=== PATIENT | female | born 1960 | race Caucasian/White ===

== ENCOUNTER 2019-05-17 08:20 | Outpatient (CLI) | payer OTHER, SELFPAY ==
--- NOTE | ~2019-05-17 | US_ITS ---
EXAMINATION: US soft tissue LE RT DATE: 05/17/2019 08:55 INDICATION: Right foot lump. TECHNIQUE: Multiple grayscale and Doppler ultrasound images of the right foot were obtained. COMPARISON: None FINDINGS: There is a 2.3 x 2.6 x 1.2 cm mixed solid and cystic mass at the dorsum of the right midfoo t. The solid component is isoechoic to subcutaneous fat. IMPRESSION: 1. Mixed solid and cystic mass at the dorsum of the right midfoot, most likely inflammation and gangl ion cysts. Reviewed, dictated and finalized at location A. TUB TENDER IMPRESSION: 1. Mixed solid and cystic mass at the dorsum of the right midfoot, most likely inflammation and ganglion cysts.
--- NOTE | 2019-05-17 10:15 | NEURO_ITS ---
Patient Number: [id number] Impression: # Known diabetic complains of numbness of hands. # Bilateral Carpal Tunnel Syndrome. # Bilateral ulnar neuropathy across the elbows. # Normal needle/EMG exam. Nerve Conduction Studies Anti Sensory Summary Table Stim Site NR Peak (ms) P-T Amp (?V) Site1 Site2 Delta-P (ms) Dist (cm) Ata (m/s) Left Median Anti Sensory (2-3nd Digit) Wrist 4.1 21.4 Wrist 2-3nd Digit 4.1 14.0 34 Wrist 3.8 41.8 Wrist 2-3nd Digit 4.1 14.0 34 Right Median Anti Sensory (2-3nd Digit) Wrist 4.2 58.3 Wrist 2-3nd Digit 4.2 14.0 33 Wrist 6.4 58.2 Wrist 2-3nd Digit 4.2 14.0 33 Left Radial Anti Sensory (Base 1st Digit) Wrist 2.1 16.0 Wrist Base 1st Digit 2.1 0.0 Right Radial Anti Sensory (Base 1st Digit) Wrist 2.4 12.5 Wrist Base 1st Digit 2.4 0.0 Left Ulnar Anti Sensory (5th Digit) Wrist 3.1 37.2 Wrist 5th Digit 3.1 14.0 45 Right Ulnar Anti Sensory (5th Digit) Wrist 3.3 9.4 Wrist 5th Digit 3.3 14.0 42 Motor Summary Table Stim Site NR Onset (ms) O-P Amp (mV) Site1 Site2 Delta-0 (ms) Dist (cm) Ata (m/s) Left Median Motor (Abd Poll Brev) Wrist 4.5 1.7 Elbow Wrist 5.7 27.0 47 Elbow 10.2 1.3 Right Median Motor (Abd Poll Brev) Wrist 4.5 1.3 Elbow Wrist 5.0 27.0 54 Elbow 9.5 2.0 Left Ulnar Motor (Abd Dig Minimi) Wrist 3.2 2.9 A Elbow Wrist 7.7 31.0 40 A Elbow 10.9 2.1 B Elbow Wrist 5.6 25.0 45 B Elbow 8.8 2.0 Right Ulnar Motor (Abd Dig Minimi) Wrist 2.8 3.4 A Elbow Wrist 7.4 30.0 41 A Elbow 10.2 0.7 B Elbow Wrist 5.1 23.0 45 B Elbow 7.9 0.7 F Wave Studies NR F-Lat (ms) L-R F-Lat (ms) Left Median (Mrkrs) (Abd Poll Brev) 30.55 0.67 Right Median (Mrkrs) (Abd Poll Brev) 31.21 0.67 Left Ulnar (Mrkrs) (Abd Dig Min) 25.29 4.79 Right Ulnar (Mrkrs) (Abd Dig Min) 30.08 4.79 EMG Side Muscle Nerve Root Ins Act Fibs Amp Dur Recrt Comment Right 1stDorInt Ulnar C8-T1 Nml Nml Nml Nml Nml Right Ext Indicis Radial (Post Int) C7-8 Nml Nml Nml Nml Nml Right Ext Digitorum Radial (Post Int) C7-8 Nml Nml Nml Nml Nml Right BrachioRad Radial C5-6 Nml Nml Nml Nml Nml Right PronatorTeres Median C6-7 Nml Nml Nml Nml Nml Right Abd Poll Brev Median C8-T1 Nml Nml Nml Nml Nml Left 1stDorInt Ulnar C8-T1 Nml Nml Nml Nml Nml Left Ext Indicis Radial (Post Int) C7-8 Nml Nml Nml Nml Nml Left Ext Digitorum Radial (Post Int) C7-8 Nml Nml Nml Nml Nml Left BrachioRad Radial C5-6 Nml Nml Nml Nml Nml Left PronatorTeres Median C6-7 Nml Nml Nml Nml Nml Left Abd Poll Brev Median C8-T1 Nml Nml Nml Nml Nml Right ABD Dig Min Ulnar C8-T1 Nml Nml Nml Nml Nml Left ABD Dig Min Ulnar C8-T1 Nml Nml Nml Nml Nml MTDD
== END 2019-05-17 08:21 | disposition home or self-care (01) ==
LOC: ANHIMG 08:23
PROVIDERS: PCP Internal Medicine; Visit Provider Nurse Practitioner
DX: R22.41 Localized swelling, mass and lump, right lower limb (principal); R20.2 Paresthesia of skin; R20.0 Anesthesia of skin; G56.03 Carpal tunnel syndrome, bilateral upper limbs; G56.23 Lesion of ulnar nerve, bilateral upper limbs
CPT/HCPCS: 76882; 95886; 95911

== ENCOUNTER 2019-06-11 08:34 | Outpatient (CLI) | payer OTHER, SELFPAY ==
--- NOTE | ~2019-06-11 | MR_ITS ---
EXAMINATION: MR ankle RT wo/w con DATE: 06/11/2019 10:04 INDICATION: Right ankle tumor and pain with pressure. TECHNIQUE: Magnetic resonance imaging (MRI) of the right ankle MR mid and hindfoot was performed with out and with deep mL Multihance intravenous contrast. Sequences included axial, sagittal and coronal T1-weighted FSE and T2-weighted FS FSE, axial T1-weighted FS FSE and postcontrast axial and sagittal T1-weighted FS FSE . COMPARISON: None. FINDINGS: Medial ankle ligaments: Deep and superficial deltoid ligaments as well as the spring ligament are normal. Lateral ankle ligaments: The anterior and posterior inferior tibiofibular ligaments are normal. The anterior talofibular, calc aneofibular and posterior talofibular ligaments are normal. Tendons: Small enthesophytes and mild enthesopathy at the calcaneal insertion of the distal Achilles tendon. T he peroneus longus and brevis tendons are normal. The tibialis anterior and extensor hallucis longus and extensor digitorum longus tendons are normal. The tibialis posterior, flexor digitorum longus and flexor hallucis longus tendons are normal. Plantar fascia: Additional moderate sized plantar calcaneal spur with mild thickening and mild increased signal of th e proximal plantar aponeurosis consistent with mild enthesopathy. No surrounding soft tissue edema to suggest acute plantar fasciitis. Bones/other: Bone alignment is normal. Normal marrow signal with no reactive edema, fracture, erosions or patholog ic marrow replacing process. Mild polyarticular osteoarthritis at the subtalar and tarsal metatarsal joints. There is thin synovial enhancement at the periphery and along the thin septations of a multil obulated likely ganglion cyst which appears to arise from the dorsal aspect of the navicular cuneifor m articulation. The lesion measures 1.6 cm possible to distal, 1.6 cm medial collateral and 10 mm in thickness. No definitive nodular enhancing soft tissue component to elevate concern for neoplasm. Fluid: Physiologic amount fluid in the joint spaces. IMPRESSION: 1. 1.6 x 1.6 x 1.0 cm multilobulated cystic lesion at the dorsal aspect of the naviculocuneiform randolph culation with curvilinear enhancement along the periphery and thin internal septations. No definitive solid or nodular enhancing soft tissue component to suggest malignancy. Location and appearance woul d be typical for a ganglion cyst which would also be statistically the most likely lesion. Differenti al would include hematoma or abscess in the appropriate clinical setting or significantly less likely neoplasm either benign such as a lymphangioma or malignant. Reviewed, dictated and finalized at location A. SS SPEC IMPRESSION: 1. 1.6 x 1.6 x 1.0 cm multilobulated cystic lesion at the dorsal aspect of the naviculocuneiform articulation with curvilinear enhancement along the periphery and thin internal septations. No definitive solid or nodular enhancing soft ti ssue component to suggest malignancy. Location and appearance would be typical for a ganglion cyst which would also be statistically the most likely lesion. D ifferential would include hematoma or abscess in the appropriate clinical setti ng or significantly less likely neoplasm either benign such as a lymphangioma o r malignant.
[2019-06-11 09:14] LABS: Blood Urea Nitrogen 14 mg/dL (8-26); Estimated Glomerular Filt Rate > 60
== END 2019-06-11 08:35 | disposition home or self-care (01) ==
LOC: ANHIMG 08:37
PROVIDERS: PCP Internal Medicine; Visit Provider Podiatrist Foot & Ankle Surgery
DX: M25.871 Other specified joint disorders, right ankle and foot (principal)
CPT/HCPCS: 73723; A9577

== ENCOUNTER 2019-06-22 15:29 | Outpatient (CLI) | payer OTHER, SELFPAY ==
--- NOTE | 2019-06-22 15:32 | ECG_ITS ---
Measurements Intervals [place] Rate: 82 P: 43 MN: 181 QRS: 47 QRSD: 86 T: 43 QT: 365 QTc: 428 Interpretive Statements SINUS RHYTHM NORMAL ECG Electronically Signed On 06-22-2019 15:50:05 [employer]ADE SALES ASSISTANT by Elpidio Smith D.O.
== END 2019-06-22 15:30 | disposition home or self-care (01) ==
LOC: ANHSURGERY 15:32
PROVIDERS: PCP Internal Medicine; Visit Provider Podiatrist Foot & Ankle Surgery
DX: E11.9 Type 2 diabetes mellitus without complications (principal)
CPT/HCPCS: 93005

== ENCOUNTER 2019-06-30 01:18 | Day surgery (SDC) | payer OTHER, SELFPAY ==
[2019-06-20 15:04] VITALS: BMI 45.6
[2019-06-30] VITALS (8 sets, daily range): BP systolic 92–138; BP diastolic 53–79; PULSE 74–98; RESP 12–20; TEMP 37–37.1; O2SAT 91–98
[2019-06-30] MEDS: LACTATED RINGERS 1,000 ML 30 ML IV CONT (06:40)
[2019-06-30 06:45] LABS: Glucose Point of Care 132 (65-105)
--- NOTE | 2019-06-30 06:54 | WPDANESEPPF ---
Anes - Initial Pre Proc Eval Procedure: Operation Date: 06/30/19 07:30 Proposed Procedures p Excision of Soft Tissue Mass Right Foot - Melchor Garcia JR, MD Date/Time: 06/30/19 06:54 Surgeon: Melchor Garcia JR, MD Pre Op Diagnosis: Soft Tissue Mass Right Foot Patient Data Age: 58 Gender: F Height: 1.65 m Weight: 124.28 kg Allergies Allergy/AdvReac Type Severity Reaction Status Date / Time tramadol AdvReac Anxiety Verified 06/27/19 07:39 Home Medications Medication Instructions Recorded Confirmed Type aspirin 81 mg tablet,delayed 81 mg PO DAILY 03/28/19 06/20/19 History release cholecalciferol (vitamin D3) 125 5,000 unit PO DAILY 03/28/19 06/20/19 History mcg (5,000 unit) tablet citalopram 20 mg tablet 20 mg PO DAILY #30 tablet 03/28/19 06/20/19 Rx metformin 1,000 mg tablet 1,000 mg PO BID #60 tablet 03/28/19 06/20/19 Rx pravastatin 10 mg PO HS 06/20/19 06/20/19 History Laboratory Tests 06/30/19 06:43 POC Capillary Glucose 132 mg/dl H mg/dl (65-105) Patient hx anesthesia problems: none Family hx anesthesia problems: none PMFSH Past Medical History Medical History (Updated 06/30/19 @ 06:54 by Jluis Spears DO) Allergies Anxiety Chicken pox Depression GI disease Hyperlipidemia Migraine SATINDER (obstructive sleep apnea) Osteoarthritis Pneumonia Post-menopausal Tobacco abuse Type 2 diabetes mellitus Vitamin D deficiency Social History Social History Smoking packs per day: 0.25 Smoking cigarettes per day: 5.0 Smoking status: Current every day smoker Tobacco type: cigarettes Alcohol intake: never Anes - Eval Final PreProcedure Day of Procedure 06/30/19 06:54 Patient weight: morbidly obese Heart: regular rate and rhythm Lungs: clear to auscultation and normal air movement Airway: Mallampati scale class III Neurological: alert and oriented Last oral intake: >/= 8 hours ASA classification: III Emergent: no Anesthetic plan: proceed Anesthesia type and monitoring: general LMA and standard monitoring Informed Consent: The patient's anesthetic plan and its attendant risks and benefits were discussed with the patient/family/POA. Questions were solicited and answers provided to the satisfaction of the patient/family/POA.
--- NOTE | 2019-06-30 07:15 | SUR.PREOP ---
NO HAIR PRESENT TO RIGHT LOWER EXTREMITY TO REMOVE
--- NOTE | 2019-06-30 07:22 | WPDHPUPDATE1 ---
History and Physical Update Update Date/Time: 06/30/19 07:22 History and Physical has been reviewed, including an updated exam of the patient. There are NO changes in the patient's condition. Risks, benefits, and alternatives have been discussed and questions answered. Patient agrees to proceed with procedure.
[2019-06-30] MEDS: ceFAZolin 3 GM/D5W 100 ML 100 ML IVPB (07:34)
[2019-06-30] MEDS: IBUPROFEN IV 800 MG/200 ML 800 MG/200 ML BAG 400 MG IVPB (07:34)
--- NOTE | 2019-06-30 07:45 | SUR.PREOP ---
PT HAS NO HAIR PRESENT TO LEFT LOWER LEG FOR REMOVAL.
[2019-06-30] MEDS: LIDOCAINE HCL 2% LOCAL INJ 20 ML VIAL 40 ML INFILTRATE (08:01)
--- NOTE | 2019-06-30 08:58 | PM.OP ---
Procedure Note - Brief Procedure Note - Brief Date of procedure: 06/30/19 Pre-op diagnosis: Soft Tissue Mass Right Foot Post-op diagnosis: same Procedure performed: Excision of soft tissue mass right foot Anesthesia: GLMA Surgeon: Melchor Garcia JR, DPM Estimated blood loss (mL): 1 Complications: No immediate complications Condition: stable Disposition: same day
[2019-06-30 09:15] LABS: Glucose Point of Care 141 (65-105)
--- NOTE | 2019-06-30 09:38 | SUR.PHASEI ---
Discussed o2 sat 89-[address] Spears. OK'd to move to op recovery.
--- NOTE | 2019-06-30 17:34 | OP_ITS ---
DATE OF PROCEDURE: 06/30/2019 PREOPERATIVE DIAGNOSES: 1. Painful soft tissue mass, right foot. 2. Neuritis, right foot. POSTOPERATIVE DIAGNOSES: 1. Painful soft tissue mass, right foot. 2. Neuritis, right foot. PROCEDURE: Excision of soft tissue mass, right foot. PATHOLOGY: Soft tissue mass from right foot sent for gross and histopathology. ANESTHESIA: General with local. HEMOSTASIS: Pneumatic ankle tourniquet at 250 mmHg. ESTIMATED BLOOD LOSS: Minimal. MATERIALS USED: 4-0 Vicryl and 4-0 Monocryl. COMPLICATIONS: None. PROCEDURE IN DETAIL: Under mild sedation, the patient was brought into the operating room, placed on the operating table in the supine position. A pneumatic ankle tourniquet was placed about the patient's right ankle. Following IV sedation, local anesthesia was obtained about the right foot utilizing 20 cc of a 1:1 mixture of 2% lidocaine plain and 0.5% Marcaine plain. The foot was then scrubbed, prepped, and draped in the usual aseptic manner. An Esmarch bandage was then used to exsanguinate the patient's right foot and the pneumatic ankle tourniquet was then inflated. Surgery began in the following manner. Attention was directed to the dorsal lateral aspect of the right proximal foot where an incision was made just dorsal to the prominent tumor. The tumor was then carefully dissected. The dissection was continued deep down through the subcutaneous tissues using sharp and blunt dissection. All bleeders were ligated and cauterized as necessary. At this point, the neurovascular bundle overlying the tumor was retracted both medially and laterally. Care was taken to make sure that there was not excessive tension on the neurovascular bundles. At this point, a thick-walled cystic mass was noted extruding from the dorsal aspect of the navicular cuneiform. This was freed distally and then carefully dissected proximally, medially and laterally. Excised the entire mass in toto. It was sent for gross and histopathology. The wound site was then flushed with copious amounts of sterile saline. The extensor digitorum brevis muscle was also retracted laterally during the dissection and there were no other noted soft tissue masses present. Next, the subcutaneous structures were reapproximated and coapted utilizing 4-0 Vicryl. Next, the skin was reapproximated and coapted utilizing 4-0 Monocryl in running subcuticular suture fashion technique. Upon completion of the procedure, the incision was dressed with Steri-Strips, Adaptic, 4x4s, Kerlix, and Coban. The pneumatic ankle tourniquet was then deflated and a prompt hyperemic response was noted to all digits of the right foot. Postop shoe was then applied. The patient did very well with the procedure and anesthesia. She was transferred to the recovery room with vital signs stable and vascular status intact to all toes of the right foot. Following a period of postoperative monitoring, the patient will be discharged home on the following written and oral postoperative instructions: 1. Keep the dressing clean, dry, and intact. 2. Avoid excessive ambulation. 3. Ice and elevate the right foot when at rest. 4. Wear surgical shoe at all times with ambulating. 5. Contact Dr. Garcia for all postop care and if any problems arise. Prescriptions were written for Percocet 5/325, dispensed 30 to be taken 1 p.o. q.4-6 hours as needed for severe pain. Juancho I MT: Romario
== END 2019-06-30 10:28 | disposition home or self-care (01) ==
PROVIDERS: PCP Internal Medicine; Visit Provider Podiatrist Foot & Ankle Surgery
PROC: (CPT 28043; principal; 2019-06-30 07:30)
DX: D17.23 Benign lipomatous neoplasm of skin and subcutaneous tissue of right leg (principal); M79.2 Neuralgia and neuritis, unspecified; E11.9 Type 2 diabetes mellitus without complications; E78.5 Hyperlipidemia, unspecified; E55.9 Vitamin D deficiency, unspecified; G47.33 Obstructive sleep apnea (adult) (pediatric); F41.8 Other specified anxiety disorders; Z79.82 Long term (current) use of aspirin; Z79.84 Long term (current) use of oral hypoglycemic drugs; E66.01 Morbid (severe) obesity due to excess calories; Z68.41 Body mass index [BMI] 40.0-44.9, adult
CPT/HCPCS: 28043; 88304; 88307; J0690; J1100; J1741; J2250; J2405; J2704; J3010; J7120

== ENCOUNTER 2022-09-11 00:07 | Day surgery (SDC) | payer OTHER, SELFPAY ==
[2022-08-27 13:36] VITALS: BMI 42.0
--- NOTE | 2022-09-10 14:30 | PM.HPGS ---
History of Present Illness History of Present Illness Consent: Risks, benefits, and alternatives have been discussed and questions answered. Patient agrees to proceed with procedure. Chief complaint: hx colon polyps Narrative: Judith Morales is a 61 year old female referred for colon cancer screening. She has a history of polyps. Review of Systems Review of Systems: All systems reviewed & are unremarkable except as noted in HPI and below PMFSH Past Medical History Medical History Allergies Anxiety Chicken pox Depression GI disease Hyperlipidemia Migraine SATINDER (obstructive sleep apnea) Osteoarthritis Pneumonia Post-menopausal Tobacco abuse Type 2 diabetes mellitus Vitamin D deficiency Family History Family History Sibling Hypertension Father Acute myocardial infarction Type 2 diabetes mellitus Mother Type 2 diabetes mellitus Sibling Hypertension Social History Social History Social History: Caffeine- soda Smoking packs per day: 1 Smoking cigarettes per day: 20.0 Years smoked: 30 Smoking pack-years: 30.00 Smoking status: Current every day smoker Tobacco type: cigarettes Alcohol intake: never Substance use: never Substance use type: does not use Lack of Transportation: No Lack of Food: Never True Current Housing: I Have Housing Concerned About Future Housing: No Difficulty Paying Gas/Electric Bills: No Difficulty Paying for Meds: No Currently Unemployed: No Education: High School Diploma/GED Difficulty w/ Childcare or Family Care: No Living arrangements: with family Spiritual care concerns: No Meds Home Medications and Allergies Home Medications Medication Instructions Recorded Confirmed Type aspirin 81 mg tablet,delayed 81 mg PO DAILY 03/28/19 08/27/22 History release (Adult Low Dose Aspirin) cholecalciferol (vitamin D3) 125 5,000 unit PO DAILY 03/28/19 08/27/22 History mcg (5,000 unit) tablet citalopram 20 mg tablet See Rx Instructions .Route 07/07/22 08/27/22 Rx .COMPLEX #90 tabs metformin 1,000 mg tablet See Rx Instructions .Route 07/07/22 08/27/22 Rx .COMPLEX #180 tabs pravastatin 10 mg tablet 10 mg PO HS #90 tabs 07/07/22 08/27/22 Rx Allergies Allergy/AdvReac Type Severity Reaction Status Date / Time tramadol AdvReac Anxiety Verified 09/11/22 06:29 Exam Resp: Auscultation: clear to auscultation bilaterally Cardio: Rate: regular rate Rhythm: regular rhythm GI: GI Palp: Yes Soft to palpation and No Tenderness to palpation present (GI) Assessment and Plan Assessment and plan (1) Screening for colon cancer: Code(s): Z12.11 - Encounter for screening for malignant neoplasm of colon Status: Acute Assessment and Plan: Colonoscopy with possible biopsy or polypectomy or cautery or injection of substances.
[2022-09-11 06:29] VITALS: BP 140/74; PULSE 85; RESP 19; TEMP 36.4; O2SAT 95
[2022-09-11] MEDS: LACTATED RINGERS 1,000 ML 150 ML IV CONT (06:39)
[2022-09-11 06:43] LABS: Glucose Point of Care 141 mg/dl (65-105)
--- NOTE | 2022-09-11 07:19 | WPDANESEPPF ---
Anes - Initial Pre Proc Eval Procedure: Operation Date: 09/11/22 07:30 Proposed Procedures p Colonoscopy - Elver Lainez MD Date/Time: 09/11/22 07:19 Surgeon: Elver Lainez MD Pre Op Diagnosis: hx colon polyps Patient Data Age: 61 Gender: F Height: 1.68 m Weight: 119.2 kg Last Vital Signs Temp 97.6 F 09/11/22 06:29 Pulse 85 09/11/22 06:29 Resp 19 09/11/22 06:29 BP 140/74 09/11/22 06:29 Pulse Ox 95 09/11/22 06:29 O2 Del Method Room Air 09/11/22 06:29 Allergies Allergy/AdvReac Type Severity Reaction Status Date / Time tramadol AdvReac Anxiety Verified 09/11/22 06:29 Home Medications Medication Instructions Recorded Confirmed Type aspirin 81 mg tablet,delayed 81 mg PO DAILY 03/28/19 08/27/22 History release (Adult Low Dose Aspirin) cholecalciferol (vitamin D3) 125 5,000 unit PO DAILY 03/28/19 08/27/22 History mcg (5,000 unit) tablet citalopram 20 mg tablet See Rx Instructions .Route 07/07/22 08/27/22 Rx .COMPLEX #90 tabs metformin 1,000 mg tablet See Rx Instructions .Route 07/07/22 08/27/22 Rx .COMPLEX #180 tabs pravastatin 10 mg tablet 10 mg PO HS #90 tabs 07/07/22 08/27/22 Rx Laboratory Tests 09/11/22 06:41 POC Capillary Glucose 141 H mg/dl (65-105) Patient hx anesthesia problems: none Family hx anesthesia problems: none Results Review: All pre-operative results and documents have been reviewed as part of the pre-operative evaluation. [facility] Past Medical History Medical History Allergies Anxiety Chicken pox Depression GI disease Hyperlipidemia Migraine SATINDER (obstructive sleep apnea) Osteoarthritis Pneumonia Post-menopausal Tobacco abuse Type 2 diabetes mellitus Vitamin D deficiency Family History Family History Sibling Hypertension Father Acute myocardial infarction Type 2 diabetes mellitus Mother Type 2 diabetes mellitus Sibling Hypertension Social History Social History Social History: Caffeine- soda Smoking packs per day: 1 Smoking cigarettes per day: 20.0 Years smoked: 30 Smoking pack-years: 30.00 Smoking status: Current every day smoker Tobacco type: cigarettes Alcohol intake: never Substance use: never Substance use type: does not use Lack of Transportation: No Lack of Food: Never True Current Housing: I Have Housing Concerned About Future Housing: No Difficulty Paying Gas/Electric Bills: No Difficulty Paying for Meds: No Currently Unemployed: No Education: High School Diploma/GED Difficulty w/ Childcare or Family Care: No Living arrangements: with family Spiritual care concerns: No Anes - Eval Final PreProcedure Day of Procedure 09/11/22 07:19 Patient weight: morbidly obese Heart: regular rate and rhythm Lungs: clear to auscultation Airway: Mallampati scale class III Neurological: alert and oriented Last oral intake: >/= 8 hours ASA classification: III Emergent: no Anesthetic plan: proceed Anesthesia type and monitoring: general GIVS and standard monitoring Results Review: All pre-operative results and documents have been reviewed as part of the pre-operative evaluation. Informed Consent: The patient's anesthetic plan and its attendant risks and benefits were discussed with the patient/family/POA. Questions were solicited and answers provided to the satisfaction of the patient/family/POA.
[2022-09-11 07:57] VITALS: BP 108/69; PULSE 83; RESP 19; O2SAT 91
[2022-09-11 08:06] VITALS: BP 125/70; PULSE 75; RESP 18; O2SAT 92
[2022-09-11 08:16] VITALS: BP 136/75; PULSE 76; RESP 18; O2SAT 91
== END 2022-09-11 08:23 | disposition home or self-care (01) ==
PROVIDERS: PCP Internal Medicine; Visit Provider Internal Medicine Gastroenterology
PROC: 0DJD8ZZ Inspection of Lower Intestinal Tract, Via Natural or Artificial Opening Endoscopic (ICD-10-PCS; CPT 45378; principal; 2022-09-11 07:30)
DX: Z12.11 Encounter for screening for malignant neoplasm of colon (principal); D12.5 Benign neoplasm of sigmoid colon; E78.5 Hyperlipidemia, unspecified; E11.9 Type 2 diabetes mellitus without complications; E55.9 Vitamin D deficiency, unspecified; F17.210 Nicotine dependence, cigarettes, uncomplicated
CPT/HCPCS: 45385; 45380; 82948; 88305; J2001; J2704; J7120

== ENCOUNTER 2024-01-12 09:50 | Outpatient (CLI) | payer OTHER, SELFPAY ==
--- NOTE | ~2024-01-12 | DEXA_ITS ---
Bone Density Report Name: JO LORENZO Age: 63 Sex: Female Ethnicity: White Date of : 1960 Indication: postmenopausal; screening for osteoporosis; height loss; Referring Provider: REINA MANIRQUEZ Study: Bone densitometry was performed. Exam Date: January 12, 2024 Accession number: [id number] Bone Density: Region BMD T-score Z-score Classification AP Spine(L1-L4) 1.444 3.6 5.1 Normal Femoral Neck (Left) 0.951 0.9 2.3 Normal Total Hip (Left) 1.079 1.1 2.1 Normal Femoral Neck (Right) 0.914 0.6 1.9 Normal Total Hip (Right) 1.047 0.9 1.9 Normal Total Hip Mean 1.063 1.0 2.0 Normal World Health Organization criteria for BMD impression classify patients as: Normal (T-score at or above -1.0), Osteopenia (T-score between -1.0 and -2.5), or Osteoporosis (T-score at or below -2.5). 10-year Fracture Risk: FRAX not reported because: All T-scores for Spine Total, Hip Total, Femoral Neck at or above -1.0 Clinical Information Provided by Patient: Smokes Patient maximum height was 65.0 Does not regularly consume dairy products Drinks caffeinated beverages Onset of menses at age 14 Number of children 0 Impression: The patient has normal bone mass. The patient has risk factors, including: smoking. Discussion: BONE DENSITY IS ABOVE THE MINIMUM DESIRABLE LEVEL AT ALL SKELETAL SITES TESTED. This patient?s bone mineral density is above the minimum desirable level (T-score -1.0 or better) at all sites measured. The patient should follow a healthful lifestyle (good nutrition with adequate calcium and vitamin D, and appropriate weight-bearing exercise). Follow-Up: Consider repeating this study in 5 years or sooner if there is some new clinical indication. Reported by: CJ on 01/12/2024 10:24:00 AM. Reviewed, dictated and finalized at location ASherita PEÑA
== END 2024-01-12 09:51 | disposition home or self-care (01) ==
PROVIDERS: PCP Internal Medicine; Visit Provider Advanced Practice Midwife
DX: Z13.820 Encounter for screening for osteoporosis (principal); Z78.0 Asymptomatic menopausal state
CPT/HCPCS: 77080

== ENCOUNTER 2024-03-23 14:56 | Outpatient (CLI) | payer OTHER, SELFPAY ==
--- NOTE | ~2024-03-23 | CT_ITS ---
CT Scan of the Chest without Contrast: Clinical Indication: Lung cancer screening, nicotine dependence Technique: Contiguous sections were acquired throughout the chest without intravenous contrast. Dose reduction technique was used on this scan by utilizing automated exposure control and iterative recon struction technique. The dose-length product (DLP) was 192.26 mGy-cm. Findings: There is no evidence of any significant mediastinal, hilar or axillary lymphadenopathy. Coronary rossana ry calcifications are present. There is no evidence of pleural or pericardial effusion. Several peripheral 2 mm pulmonary nodules are present in the right upper and middle lobes. There is a 5 mm right lower lobe pulmonary nodule (axial image 60). Images through the upper abdomen reveal no abnormalities. Impression: Lung RADS 2: Benign appearance. 12 month follow-up screening CT advised. Reviewed, dictated and finalized at [facility]. R HELPER Impression: Lung RADS 2: Benign appearance. 12 month follow-up screening CT advised.
== END 2024-03-23 14:57 | disposition home or self-care (01) ==
PROVIDERS: PCP Internal Medicine; Visit Provider Nurse Practitioner
DX: Z12.2 Encounter for screening for malignant neoplasm of respiratory organs (principal); F17.210 Nicotine dependence, cigarettes, uncomplicated
CPT/HCPCS: 71271

== ENCOUNTER 2025-04-17 09:06 | Outpatient (CLI) | payer OTHER, SELFPAY ==
--- NOTE | ~2025-04-17 | CT_ITS ---
EXAMINATION:CT lung screening DATE: 04/17/2025 09:53 INDICATION: Personal history of nicotine dependence. TECHNIQUE: Computed tomography (CT) of the chest was performed without intravenous contrast. Automated exposure control and iterative reconstruction technique were employed. The dose-length product (DLP) was 191.67 mGy-cm. COMPARISON: Chest CT 03/23/2024 FINDINGS: The lungs demonstrate mild atelectasis. There is a stable 6 mm nodule in right lower lobe. There are a few scattered nodules in the lungs measuring up to 3 mm. Calcified right lung nodules and calcified right hilar and mediastinal lymph nodes are consistent with old granulomatous disease. No pleural effusion. The heart size is normal. There are coronary artery calcifications. No pericardial effusion. Calcifications in the spleen are consistent with old granulomatous disease. There are changes of anterior fusion procedure in cervical spine. There is moderate thoracic spondylosis. IMPRESSION: 1. Lung-RADS category 2: Benign appearance or behavior. Continue annual screening with noncontrast low-dose chest CT in 12 months. Reviewed, dictated and finalized at location E. NE [employer]OM[employer]ER TESTER IMPRESSION: 1. Lung-RADS category 2: Benign appearance or behavior. Continue annual screeni ng with noncontrast low-dose chest CT in 12 months.
--- OUTSIDE RECORDS SUMMARY | 2025-04-17 09:18 | XMS_ITS | Clinical Summary ---
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 Pulse - - Temperature - - Respiratory Rate - - Oxygen Saturation - - Inhaled Oxygen Concentration - - Weight 146.1 kg (322 lb) 02/27/2013 9:18 AM SERVICE DESK ANALYST Height 165.1 cm (5' 5) 02/27/2013 9:18 AM SERVICE DESK ANALYST Body Mass Index 53.58 02/27/2013 9:18 AM SERVICE DESK ANALYST Plan of Treatment Health Maintenance Due Date Last Done Comments Cervical Cancer Screening Pa p Smear (Age 30 to 64) Every 3 Years 1962 Colorectal Cancer Screening Colonoscopy (10 Years) 1962 Annual Physical 1965 Hepatitis C 1980 Cervical Cancer Screening Pa p with HPV Testing (Age 30 to 64) Every 5 Years 1992 Cervical Cancer Screening with HPV 1992 Mammogram Screening 2002 Pneumococcal Vaccine: 50+ Ye ars (1 of 1 - PCV) 2012 Zoster Vaccines (1 of 2) 2012 DTaP, Tdap and Td Vaccines ( 2 - Td or Tdap) 03/16/2021 03/16/2011 COVID-19 Vaccine ( - 2024-2 6 season) 2024 Influenza Adult (#1) 2025 02/27/2013 RSV Immunization or 60+ Years (1 - 1-dose 75+ series) 2037 Hepatitis A Vaccines Aged Out No long er eligible based on patient's age to complete this topic Meningococcal B Vaccine Aged Out No l onger eligible based on patient's age to complete this topic Meningococcal Vaccine Aged Out No elyssa janay eligible based on patient's age to complete this topic RSV Immunizations Under 20 Months Aged Out No longer eligible based on patient's age to complete this topic
== END 2025-04-17 09:07 | disposition home or self-care (01) ==
PROVIDERS: PCP Nurse Practitioner; Visit Provider Nurse Practitioner
DX: Z12.2 Encounter for screening for malignant neoplasm of respiratory organs (principal); Z87.891 Personal history of nicotine dependence
CPT/HCPCS: 71271